=== PATIENT | male | born 1980 | race African-American/Black ===

== ENCOUNTER 2024-06-24 15:57 | Emergency (ER) | payer MEDICAID ==
[~2024-06-24] VITALS: Ht 182.9 cm; Wt 145.4 kg
[2024-06-24 16:02] VITALS: TEMP 97.6
[2024-06-24 20:28] LABS: BASOPHILS % (AUTO) 0.5 % (0-1); EOSINOPHILS # (AUTO) 0.2 X10'3 (0-0.9); EOSINOPHILS % (AUTO) 2.1 % (0-6); HEMATOCRIT 39.4 % (42.0-52.0); HEMOGLOBIN 13.6 g/dl (14.0-17.9); LYMPHOCYTES # (AUTO) 1.1 X10'3 (1.1-4.8); LYMPHOCYTES % (AUTO) 12.2 % (21-51); MEAN CORPUSCULAR HEMOGLOBIN 32.1 PG (27.0-31.0); MEAN CORPUSCULAR HGB CONC 34.6 g/dL (33.0-36.5); MEAN CORPUSCULAR VOLUME 92.8 FL (78-98); MONOCYTES # (AUTO) 0.6 X10'3 (0-0.9); MONOCYTES % (AUTO) 6.8 % (2-12); NEUTROPHILS # (AUTO) 7.2 X10'3 (1.8-7.7); NEUTROPHILS % (AUTO) 78.4 % (42-75); PLATELET COUNT 208 X10'3 (140-440); RED BLOOD COUNT 4.25 X10'6 (4.70-6.10); RED CELL DISTRIBUTION WIDTH 18.6 % (11.5-14.5); WHITE BLOOD COUNT 9.1 X10'3 (4.5-11.0)
[2024-06-24 20:45] LABS: ANISOCYTOSIS 1+
[2024-06-24 21:20] LABS: ALANINE AMINOTRANSFERASE 23 U/L (12-78); ALBUMIN 3.6 G/DL (3.4-5.0); ALBUMIN/GLOBULIN RATIO 0.8 (1.1-1.5); ALKALINE PHOSPHATASE 87 IU/L (46-116); ANION GAP 10 (8-16); BILIRUBIN,TOTAL 1.1 MG/DL (0.1-1.0); BLOOD UREA NITROGEN 19 MG/DL (7-18); BUN/CREATININE RATIO 14.4 (10.0-20.0); CALCIUM 8.3 MG/DL (8.5-10.1); CHLORIDE 102 MMOL/L (99-107); CREATININE 1.32 MG/DL (0.60-1.10); GLUCOSE 144 MG/DL (70-104); SODIUM 135 MMOL/L (135-145); TOTAL CARBON DIOXIDE 23.5 MMOL/L (24-32); TOTAL PROTEIN 7.9 G/DL (6.4-8.2); eCRCL 77 ML/MIN; eGFR 71 ML/MIN
[2024-06-24 21:28] LABS: PRO BRAIN NATRIURETIC PEPTIDE 38 PG/ML (0-125)
[2024-06-24 21:34] LABS: ASPARTATE AMINO TRANSFERASE 26 U/L (10-37); POTASSIUM 4.8 MMOL/L (3.5-5.1); URIC ACID 7.7 MG/DL (3.5-7.2)
[2024-06-24] MEDS ORDERED: iohexol 350MG/ML 100ml bottle IV ONE (22:17)
[2024-06-24] MEDS ORDERED: iohexol 350 MG/ML 50ML vial IV ONE (22:17)
[2024-06-24] MEDS: ketorolac trometh 15mg/ml vial 15 MG/ML ML IV ONE (22:35)
[2024-06-24 22:42] LABS: HEMOGLOBIN A1C 5.9 % (4.5-6.2)
[2024-06-25] MEDS ORDERED: INDO50CA96 PO (00:01)
[2024-06-25 00:25] LABS: BILIRUBIN,URINE NEGATIVE (Neg); CLARITY,URINE CLEAR (Clear); COLOR,URINE YELLOW (Yellow); GLUCOSE, URINE NEGATIVE (Neg); KETONES,URINE NEGATIVE (Neg); LEUKOCYTE ESTERASE ,URINE NEGATIVE (Neg); NITRITES, URINE NEGATIVE (Neg); OCCULT BLOOD,URINE NEGATIVE (Neg); PROTEIN,URINE NEGATIVE (Neg)
[2024-06-25 00:34] LABS: UA COLLECTION TYPE VOIDED
[2024-06-25 00:36] VITALS: BP 150/81; PULSE 83; RESP 16; O2SAT 99
== END 2024-06-25 00:38 | disposition home or self-care (01) ==
LOC: ER 15:59
DX: S82.152A Displaced fracture of left tibial tuberosity, initial encounter for closed fracture (principal); R60.0 Localized edema; M25.562 Pain in left knee; I50.9 Heart failure, unspecified; E11.9 Type 2 diabetes mellitus without complications; Z79.899 Other long term (current) drug therapy; X58.XXXA Exposure to other specified factors, initial encounter; Y93.89 Activity, other specified; Y92.89 Other specified places as the place of occurrence of the external cause; Y99.8 Other external cause status
CPT/HCPCS: 36415; 71045; 73564; 73701; 74177; 80053; 81003; 83036; 83880; 84484; 84550; 85008; 85025; 85651; 86140; 93005; 96374; 99285; J1885; Q9967; 96372